=== PATIENT | female | born 1980 | race Caucasian/White ===

== ENCOUNTER 2017-09-06 11:35 | Inpatient (IN) | payer OTHER | END 2017-09-08 13:05 | disposition home or self-care (01) | DRG 560 | LOC: JLDR 11:35 → J3W 18:07 | PROVIDERS: ADMIT Obstetrics & Gynecology | PROC: 0HQ9XZZ Repair Perineum Skin, External Approach (ICD-10-PCS; principal; 2017-09-06) | PROC: 10E0XZZ Delivery of Products of Conception, External Approach (ICD-10-PCS; 2017-09-06) | CPT/HCPCS: 36415; 59409; 80048; 85025; 85610; 85730; 86593; 86850; 86900; 86901; 90715 ==

== ENCOUNTER 2022-04-09 11:20 | Emergency (ER) | payer OTHER ==
[2022-04-09 12:02] VITALS: BMI 25.7
[2022-04-09] MEDS ORDERED: methylPREDNISolone NA SUCC 125 MG/2 ML VIAL IVPB ONE (12:26)
[2022-04-09] MEDS ORDERED: FAMOTIDINE 20 MG/50 ML IVPB 20 MG/50 ML MG IVPB ONE ×2 (12:26→12:35)
[2022-04-09] MEDS ORDERED: SODIUM CHLORIDE 1,000 ML IV STA (12:26)
[2022-04-09] MEDS ORDERED: methylPREDNISolone NA SUCC 125 MG/2 ML VIAL ONE (12:35)
[2022-04-09 15:38] VITALS: BP 115/72; PULSE 82; RESP 18; TEMP 98.2
== END 2022-04-09 15:00 | disposition home or self-care (01) ==
LOC: JER 11:20
PROC: 3E033GC Introduction of Other Therapeutic Substance into Peripheral Vein, Percutaneous Approach (ICD-10-PCS; principal; 2022-04-09)
PROC: 3E033GC Introduction of Other Therapeutic Substance into Peripheral Vein, Percutaneous Approach (ICD-10-PCS; 2022-04-09)
PROC: 3E033GC Introduction of Other Therapeutic Substance into Peripheral Vein, Percutaneous Approach (ICD-10-PCS; 2022-04-09)
PROC: 3E0337Z Introduction of Electrolytic and Water Balance Substance into Peripheral Vein, Percutaneous Approach (ICD-10-PCS; 2022-04-09)
DX: T78.40XA Allergy, unspecified, initial encounter (principal)
CPT/HCPCS: 96361; 96374; 96375; 99284-25